=== PATIENT | male | born 1985 | race Two or more races ===

== ENCOUNTER 2021-12-09 23:33 | Emergency (ER) | payer OTHER ==
[~2021-12-09] VITALS: Ht 175.3 cm; Wt 77.1 kg
[2021-12-10 00:38] LABS: MEAN CORPUSCULAR HEMOGLOBIN 24.1 uug (23.8-33.4); MEAN CORPUSCULAR VOLUME 74.5 fL (73.0-96.2); PLATELET COUNT (AUTO) 266 K/uL (152-348)
--- NOTE | 2021-12-10 00:40 | NUR ---
pt placed in room pt ambulatory denies dizziness.
[2021-12-10 01:09] LABS: BILIRUBIN,TOTAL 0.4 mg/dL (0.2-1.0); CREATININE 1.1 mg/dL (0.6-1.3); POTASSIUM 3.5 mmol/L (3.5-5.1); TOTAL PROTEIN, SERUM 7.2 g/dL (6.4-8.2)
[2021-12-10 04:26] LABS: ABG BASE EXCESS 3.2 mmol/L; ABG PH 7.432 (7.350-7.450); ABG PO2 92.4 mmHg (75.0-100.0); ABG SITE RIGHT RADIAL; ABG TOTAL HEMOGLOBIN 18.9 G/dL (13.5-18.0); COHb 0.3 % (0.5-1.5); MetHb 0.5 % (0.0-1.5); O2Hb 96.8 % (94.0-97.0); VENT MODE Room Air
--- NOTE | 2021-12-10 05:01 | NUR ---
Patient discharged to home in stable condition. Written and verbal after care instructions given. Patient verbalizes understanding of instructions. Stressed follow up or return to ER for worsening s/s. pt ambulated without assist, denies dizziness.
[2021-12-10 05:02] VITALS: BP 145/80
== END 2021-12-10 05:03 | disposition home or self-care (01) ==
LOC: ER 23:42
DX: R55 Syncope and collapse (principal)
CPT/HCPCS: 36415; 36600; 70030-TC; 82375; 85025; 93005; A4663